=== PATIENT | female | born 1980 | race Asian ===

== ENCOUNTER 2016-09-02 03:17 | Emergency (ER) | payer SELFPAY ==
[~2016-09-02] VITALS: Ht 157.5 cm; Wt 48.1 kg
[2016-09-02 03:22] VITALS: BP 134/94
== END 2016-09-02 05:40 | disposition home or self-care (01) ==
LOC: ER 03:17
DX: S01.01XA Laceration without foreign body of scalp, initial encounter (principal); J45.909 Unspecified asthma, uncomplicated; W17.89XA Other fall from one level to another, initial encounter; Y93.89 Activity, other specified; Y92.89 Other specified places as the place of occurrence of the external cause; Y99.8 Other external cause status
CPT/HCPCS: 12001; 99283; A4606; A6402; Z7610